=== PATIENT | female | born 1935 | race Caucasian/White ===

== ENCOUNTER → 2016-10-10 08:32 | Outpatient (CLI) | payer MEDICARE, OTHER | END | disposition home or self-care (01) | LOC: D.RAD 08:32 | DX: R13.10 Dysphagia, unspecified (principal) ==

== ENCOUNTER → 2016-11-01 08:35 | Outpatient (CLI) | payer MEDICARE, OTHER | END | disposition home or self-care (01) | LOC: D.CT 08:35 | DX: K22.2 Esophageal obstruction (principal); R13.10 Dysphagia, unspecified ==

== ENCOUNTER 2017-09-12 19:09 | Inpatient (IN) | payer MEDICARE, OTHER ==
[~2017-09-12] VITALS: Ht 167.6 cm; Wt 95.0 kg
--- NOTE | ~2017-09-12 | HEMODYNAMI ---
PATIENT:JUSTICE REAGAN MEDICAL RECORD: [id number] : 35 LOCATION:D. D.2119 [place]# [id number] ADMISSION DATE: 09/13/17 Generatedon:09/14/201716:25 Patient name: JUSTICE REAGAN Patient #: [id number] SSN: DO B: 1935 Date of study: 09/14/2017 Page: Of Hemodynamic Procedure Report Patient Data Patient Demographics Procedure consent was obtained First Name: JUSTICE Gender: Female Last Name: TEZ : 1935 Middle Initial: ANNEMARIE Age: 82 year(s) Patient #: [id number] Race: Unknown Additional ID: [id number] Contact details [address]: [address] [place] [address] State: [place] City: [place] Zip code: [address] Past Medical History Allergies Allergen Reaction Date Comments Reported Other allergy 09/14/2017 PCN, Hydrocodone, Oxycodone. Admission Admission Data Admission Date: 09/13/2017 Admission Time: 20:06 Admit Source: Other Room #: D.2119 Lab Results Lab Result Date: 09/14/2017 Lab Result Time: 4:00 Biochemistry Name Units Result Min Max BUN mg/dl 13 --(--*-)-- 7 18 Creatinine mg/dl 0.9 --(-*--)-- 0.6 1.3 CBC Name Units Result Min Max Hematocrit % 37.5 *-(----)-- 42 54 Hemoglobin g/dl 12.1 *-(----)-- 13.5 17.5 Procedure Procedure Types Cath Procedure Diagnostic Procedure LHC LHC w/Coronaries Procedure Description Procedure Date Procedure Date: 09/14/2017 Procedure Start Time: 16:13 Procedure End Time: 16:25 Procedure Staff Name Function Shiva Quevedo MD Performing Physician Barry Monroe RT Monitor Bowen Marte RN Nurse Brittani Dimas RT Scrub Procedure Data Cath Procedure Fluoroscopy Diagnostic fluoroscopy Total fluoroscopy Time: 1.1 time: 1.1 min min Diagnostic fluoroscopy Total fluoroscopy dose: 289 dose: 289 mGy mGy Contrast Material Contrast Material Type Amount (ml) Isovue 300 41 Entry Location Entry Primary Successful Side Size Upsize Upsize Entry Closure Cordova ccessful Closure Location (Fr) 1 (Fr) 2 (Fr) Remarks Device Remarks Radial Right 6 Fr Mechanical artery Short Compression Estimated blood loss: 5 ml Diagnostic catheters Device Type Used For End Catheter Placement DIAGNOSTIC Wishek 110cm 5 Procedure Fr catheter ([id number]) Procedure Complications No complications Procedure Medications Medication Administration Route Dosage Oxygen NC 2 l/min Lidocaine 2% added to field 20 Heparin Flush Bag added to field 2 bags (1000units/500ml NS) 0.9% NaCl I.V. 100 ml/hr Radial Cocktail I.A. 1 syringe (Verapomil 2mg/Nitro 400mcg/Heparin 1500units) Versed I.V. 2 mg Fentanyl I.V. 25 mcg Versed I.V. 1 mg Hemodynamics Rest HGB: 12.1 (g/dl) Heart Rate: 76 (bpm) Pressure Samples Time Site Value (mmHg) Purpose Heart Use Rate(bpm) 16:16 LV 110/-13,0 EDP 76 Gradients Valve Time Site Site Mean SEP/DFP Peak To Heart Use 1 2 (mmHg) (sec/min) Peak Rate (mmHg) (bpm) Aortic 16:16 LV AO 78 Snapshots Pre Cath Intra NCS Post Cath Vital Signs Time Heart Resp SPO2 etCO2 NIBP (mmHg) Rhythm Pain Sedation Rate (ipm) (%) (mmHg) Status Level (bpm) 16:05:10 83 19 98 15.6 No Cuff NSR 0 (11) 10(A) , No pain 16:10:07 74 17 99 22.3 147/81(126) NSR 0 (11) 10(A) , No pain 16:15:04 77 21 97 36.5 149/66(121) NSR 0 (11) 10(A) , No pain 16:19:48 74 15 96 26.1 112/66(89) NSR 0 (11) 10(A) , No pain 16:24:48 67 16 98 35.7 Measuring NSR 0 (11) 10(A) , No pain 16:25:12 67 16 96 33.5 133/70(106) NSR 0 (11) 10(A) , No pain Medications Time Medication Route Dose Verified Delivered Reason Notes Effectiveness by by 16:03:50 Oxygen NC 2 l/min Shiva Buffie used for Emy Marte RN procedure MD 16:03:58 Lidocaine 2% added 20ml Shiva Shiva for local to vial Emy Quevedo MD anesthetic field 16:04:05 Heparin Flush added 2 bags Shiva Shiva used for Bag to Emy Quevedo MD procedure (1000units/500ml field LABOY NS) 16:04:14 0.9% NaCl I.V. 100 Shiva Buffie Per ml/hr Emy Marte RN physician 16:11:44 Versed I.V. 2 mg Shiva Buffie for sedation Emy Marte RN, MD 16:11:51 Fentanyl I.V. 25 mcg Shiva Buffie for sedation Emy Marte RN, MD 16:14:33 Radial Cocktail I.A. 1 Shiva Shiva for (Verapomil syringe Emy Quevedo MD vasodilation 2mg/Nitro MD 400mcg/Heparin 1500units) 16:15:27 Versed I.V. 1 mg Shiva Buffie for sedation Emy Marte RN, MD Procedure Log Time Note 15:45:48 Bowen Marte RN sent for patient. Start room use. 15:53:27 Admit Source: Other 15:53:46 Diagnostic Cath status Elective 15:53:58 Time tracking: Call back 15:54:02 Plan of Care:Hemodynamics will remain stable., Cardiac rhythm will remain stable., Comfort level will be maintained., Respiratory function will remain adequate., Patient/ family verbilizes understanding of procedure., Procedure tolerated without complication., Recovers from procedure without complications.. 15:54:08 Patient received from Med II to CCL 1 Alert and oriented. Tansferred to table in Supine position. 15:54:09 Warm blankets applied, and january hugger turned on for patient comfort. 15:54:09 Correct patient and procedure confirmed by team. 15:54:10 Signed procedure consent form obtained from patient. 15:54:11 ECG and BP/O2 sat monitors applied to patient. 15:54:55 H&P Date Dictated: 09/13/2017 Within 30 days and on chart., H&P Addendum completed by physician on day of procedure. (MUST COMPLETE FOR ALL OUTPATIENTS). 15:54:57 Pre-procedure instructions explained to patient. 15:54:58 Pre-op teaching completed and patient verbalized understanding. 15:54:59 Family in patients room. 15:55:00 Patient NPO since Midnight. 15:55:08 Lab results completed and on chart. 16:03:50 Oxygen 2 l/min NC was administered by Bowen Marte RN; used for procedure; 16:03:58 Lidocaine 2% 20ml vial added to field was administered by Shiva Quevedo MD; for local anesthetic; 16:04:05 Heparin Flush Bag (1000units/500ml NS) 2 bags added to field was administered by Shiva Quevedo MD; used for procedure; 16:04:14 0.9% NaCl 100 ml/hr I.V. was administered by Bowen Marte RN; Per physician; 16:04:20 Vital chart was started 16:08:19 Baseline sample Acquired. 16:08:23 Rhythm: sinus rhythm 16:08:54 Patient allergic to Other allergyPCN, Hydrocodone, Oxycodone. 16:08:56 Is the patient allergic to Iodine/contrast media? No. 16:08:57 Is patient on blood thinner?Yes 16:08:59 ACC The patient was administered the following blood thiners within the last 24 hours: ACCPlavix 16:09:01 Patient diabetic? No. 16:09:03 Previous problem with sedation/anesthesia? No ? 16:09:04 Snore? No 16:09:05 Sleep apnea? No 16:09:06 Deviated septum? No 16:09:07 Opens mouth fully? Yes 16:09:10 Sticks out tongue? Yes 16:09:12 Airway obstruction? No ? 16:09:25 Dentures? Yes Top denture in tight 16:09:28 Modified Andrew's test Ulnar < 7 seconds 16:09:30 Patient pain scale 0/10 ?. 16:09:40 IV patent on arrival in left hand with 0.9% NaCl at [facility]. 16:10:15 Lab Result : Creatinine 0.9 mg/dl 16:10:15 Lab Result : BUN 13 mg/dl 16:10:15 Lab Result : Hemoglobin 12.1 g/dl 16:10:15 Lab Result : Hematocrit 37.5 % 16:10:20 Right Radial & Right Groin area was prepped with chlora-prep and draped in sterile fashion 16:10:21 Alarms reviewed by R. N. 16:10:21 Sharps counted by scrub and verified by R.N. 16:10:24 Use device set Radial Dx or PCI 16:10:25 ACIST Syringe (64916) opened to sterile field. 16:10:26 Medline Cath Pack ([id number]) opened to sterile field. 16:10:27 Bag Decanter (2002S) opened to sterile field. 16:10:28 ACIST Hand Control (35113) opened to sterile field. 16:10:29 ACIST Manifold (15077) opened to sterile field. 16:10:30 Tegaderm 4 x 4 (1626W) opened to sterile field. 16:10:35 MBrace Wrist Support ([id number]) opened to sterile field. 16:10:43 SHEATH 6Fr Prelude Radial ([id number]) opened to sterile field. 16:10:46 DIAGNOSTIC WIRE .035 260cm J wire (359371) opened to sterile field. 16:10:52 Physician arrived 16:10:52 --------ALL STOP TIME OUT------ 16:10:53 Final Timeout: patient, procedure, and site verified with staff and physician. All members of the team are in agreement. 16:10:54 Right Radial & Right Groin site verified by team. 16:10:56 Physical assessment completed. ASA score P 2 - A patient with mild systemic disease as per Shiva Quevedo MD. 16:10:58 Sedation plan: IV Moderate Sedation Medication:Versed, Fentanyl 16:11:44 Versed 2 mg I.V. was administered by Bowen Marte RN; for sedation; 16:11:51 Fentanyl 25 mcg I.V. was administered by Bowen Marte RN; for sedation; 16:12:48 TR BAND Standard ([id number]) opened to sterile field. 16:13:39 Zero performed for pressure channel P1 16:13:47 Procedure started. 16:13:47 Full Disclosure recording started 16:13:50 Local anesthetic to right radial artery with Lidocaine 2% by Shiva Quevedo MD.INITIAL ACCESS ONLY 16:13:57 A 6 Fr Short sheath was inserted into the Right Radial artery 16:14:12 A DIAGNOSTIC Wishek 110cm 5 Fr catheter ([id number]) was advanced over the wire and used for Procedure. 16:14:33 Radial Cocktail (Verapomil 2mg/Nitro 400mcg/Heparin 1500units) 1 syringe I.A. was administered by Shiva Quevedo MD; for vasodilation; 16:15:27 Versed 1 mg I.V. was administered by Bowen Marte RN; for sedation; 16:16:15 LV gram done using MOSES 16:16:22 Injector settings: Ml/sec: 12, Volume: 8, 16:16:35 EF : 60 % 16:17:10 RCA angiography performed. 16:18:00 LCA angiography performed. 16:18:20 Catheter removed. 16:20:29 Sheath removed intact; hemostasis achieved with Mechanical Compression to the Right Radial artery. 16:20:31 Procedure ended.(Physican Out) 16:21:30 Fluoroscopy time 01.10 minutes. 16:21:35 Fluoroscopy dose: 289 mGy 16:21:35 Flurop Dose total: 289 16:21:39 Contrast amount:Isovue 300 41ml. 16:21:40 Sharps counted by scrub and verified by R.N. 16:21:52 TR band inflated with 12cc of air. 16:21:53 Insertion/operative site no bleeding no hematoma. 16:22:06 Post right radial artery:stable, soft, clean and dry 16:22:07 Post Procedure Pulses reassessed and unchanged 16:22:09 Post-procedure physical assessment completed. ASA score P 2 - A patient with mild systemic disease as per Shiva Quevedo MD. 16:22:11 Post procedure rhythm: unchanged. 16:22:14 Estimated blood loss: 5 ml 16:22:15 Post procedure instruction explained to patient.Patient verbalizes understanding. 16:22:17 Patient needs reinforcement of post procedure teaching. 16:24:52 Procedure and supply charges have been captured, reviewed, submitted and are correct. 16:24:54 Procedure Complication : No complications 16:25:08 Vital chart was stopped 16:25:08 See physician's report for complete and final results. 16:25:09 Report given to PCU. 16:25:12 Patient transfered to PCU with Stretcher. 16:25:13 Procedure ended. 16:25:13 Full Disclosure recording stopped 16:25:17 End room use (Document Last) Device Usage Item Name Manufacture Quantity Catalog Number Hospital Part Current M inimal Lot# / Charge Number Stock Stock Serial# Code ACIST Syringe Acist 1 72781 [id number] 190137 644815 2 0 (51806) [employer] Medline Cath Cardinal 1 [id number] 991421 91019 768707 5 Pack Health ([id number]) Bag Decanter Microtek 1 2002S 028500 52274 719291 5 (2001S) Medical Inc. ACIST Hand Acist 1 87291 100728 908172 734604 5 Control (32045) [employer] Inc ACIST Manifold Acist 1 17846 643630 534623 207846 5 (90295) [employer] Inc Tegaderm 4 x 4 3M 1 1626W 686946 865786 545124 5 (1626W) MBrace Wrist Advanced 1 140-0250-00 402085 89538 446729 5 Support Vascular ([id number]) Dynamics SHEATH 6Fr Merit 1 [id number] 664234 581286 743981 5 Prelude Radial Medical ([id number]) DIAGNOSTIC WIRE St Smooth 1 169376 971284 707299 144069 3 0 .035 260cm J wire (690267) TR BAND Terumo 1 [id number] 105505 655201 809549 4 0 Standard ([id number]) DIAGNOSTIC Terumo 1 40-1805 572230 340481 901352 5 Wishek 110cm 5 Fr catheter (081723) Signature Audit [place] Stage Time Signature Unsigned Intra-Procedure 09/14/2017 Barry Monroe 4:25:39 PM RT(R) Signatures Monitor : Barry Monroe RT Signature : Date : Time : [facility] [address] [place] [address]
--- NOTE | ~2017-09-12 | EC ---
PATIENT:UJSTICE REAGAN DATE OF SERVICE: 09/13/17 SEX: F MEDICAL RECORD: [id number] DATE OF : 35 LOCATION:D.M2 D.211 AGE OF PATIENT: 82 ADMISSION DATE: 09/13/17 REFERRING PHYSICIAN: INTERPRETING PHYSICIAN: DENITA GUZMAN MD ECHOCARDIOGRAM REPORT ECHO CHARGES 4 ECHO COMPLETE DATE: CLINICAL DIAGNOSIS: CP ECHOCARDIOGRAPHIC MEASUREMENTS (adult normal given) AC root (d.<3.7cm) 2.7 cm LV Septum d (<1.2 cm> 1.8 cm Valve Excursion 1.7 cm LV Septum (systole) 2.2 cm Left Atria (s.<4.0cm> 3.6 cm LVPW d(<1.2cm) 1.6 cm RV (d.<2.3cm) 2.6 cm LVPW (sytole) 2.1 cm LV diastole(<5.6CM) 4.8 cm MV E-F(>70mm/sec) cm LV systole 3.0 cm LVOT Diameter 1.8 cm MV exc.(>10mm) cm Est.ejection fraction (50-75%) % DOPPLER: LVIT cm/sec A 190 cm/sec E 122 cm/sec LA cm/sec RVSP 22.0 mmHg LVOT 121 cm/sec AOP1/2T m/s Asc. Ao 177 cm/sec RVOT 81.0 cm/sec RA cm/sec PA 92.0 cm/sec AV Gradient Peak 13.0 mmHg AV Mean 6.6 mmHg AV Area 1.5 cm MV Gradient Peak 12.1 mmHg MV Mean 3.1 mmHg MV Area cm COMMENTS: Board Stacker: Delphine FALKOE Pediatric Np: 4 Dr. Guzman TAPE# PACS Pericardial Effusion N DATE OF SERVICE: 09/14/2017 PROCEDURE: Transthoracic echocardiogram. FINDINGS: 1. Left ventricle has moderate concentric left ventricular hypertrophy. Overall, ejection fraction is normal 50-55%. There are no significant wall motion abnormalities. Inflow characteristics are consistent with diastolic dysfunction. 2. The left atrium is normal size and normal function. ECHOCARDIOGRAM REPORT [id number] JUSTICE REAGAN 3. The aortic valve is mildly sclerotic, but otherwise normal. 4. The mitral valve has mitral annular calcification with mild-moderate mitral regurgitation. 5. Tricuspid valve has normal function. 6. Normal right ventricular systolic pressures. 7. The right ventricle is normal size, normal function. 8. The right atrium is normal size, normal function. CONCLUSIONS: The patient has evidence of moderate hypertensive heart disease, otherwise normal echo with moderate mitral regurgitation. TRANSINT:[id number] Voice Confirmation ID: [id number] DOCUMENT ID: [id number] DENITA GUZMAN MD at 0924 CC: [id number] DICTATION DATE: 09/15/17 1149 TRAFFIC COORDINATOR: 09/15/17 1206 DIS IN 09/14/17 [place] [place] [address]
--- NOTE | ~2017-09-12 | CN ---
PATIENT NAME:JUSTICE REAGAN MEDICAL RECORD: [id number] : 35 LOCATION:D.Latisha D.2119 ADMIT DATE: 09/13/17 ACCOUNT: [id number] CONSULTING PHYSICIAN: TRAE BURNS MD REFERRING PHYSICIAN: ALEXANDER EVANS MD DATE OF CONSULTATION: 09/13/2017 HISTORY OF PRESENT ILLNESS: An 82-year-old female with a history of peripheral neuropathy, essential tremor, hypertension, hypothyroidism, admitted with chest pain. It is probably more right upper quadrant pain by description, more or less unrelenting over the past 3-4 days, really has not felt well and has had intermittent abdominal pain since hysterectomy in this fall. Cardiac enzymes negative so far. ECG without acute change. We are asked to see her concerning her cardiovascular status. PAST MEDICAL HISTORY: Includes: 1. History of hypothyroidism, on replacement. 2. Peripheral neuropathy. 3. Essential tremor. 4. Hypertension. ALLERGIES: PENICILLIN, HYDROCODONE, OXYCODONE. MEDICATIONS: Include Inderal 60 daily, Neurontin 300 mg in a.m. and 600 at p.m., aspirin 81 every day, Lasix 20 every day, Prilosec 20 b.i.d. (stopped this on her own, just recently restarted), Synthroid 50 mcg every day. SOCIAL HISTORY: Nonsmoker, nondrinker. Easily takes care of her ADLs. REVIEW OF SYSTEMS: The patient reports easy bruising but reports no swollen glands. The patient reports no fever, no night sweats, no significant weight gain, no significant weight loss. No significant exercise tolerance. The patient reports no dry eyes, no irritation, no vision change. Patient reports no difficulty hearing and no ear pain. Patient reports no frequent nose bleeds or nose and sinus problems. Patient reports on arm pain on exertion. No shortness of breath while lying down. No history of heart murmur. Patient reports no cough, no wheezing or coughing up blood. Patient reports no abdominal pain, no vomiting. Normal appetite. No diarrhea and not vomiting blood. No nausea and no constipation. Patient reports no incontinence. No difficulty urinating. No hematuria. No increased frequency. Patient reports no muscle aches. No weakness, no arthralgias, no back pain. No swelling of the extremities. Patient reports no abnormal mole, no jaundice, no rashes. Reports no loss of consciousness. No weakness and no numbness. No seizures, dizziness, or headaches. The patient reports no depression, no sleep disturbance, feeling safe in a relationship and no alcohol abuse. Patient reports on fatigue. Reports no runny nose or sinus pressure. No itching, no hives, and no frequent sneezing. PHYSICAL EXAMINATION: GENERAL: Pleasant female in no acute distress. VITAL SIGNS: Blood pressure 170/69, pulse 74 and regular. HEENT: Normocephalic, atraumatic. NECK: No JVD or bruit. HEART: Regular. LUNGS: Clear. CONSULT REPORT [id number] REAGANJUSTICE ABDOMEN: Soft, nontender. EXTREMITIES: Pulses are well preserved, 2+ with no edema. NEUROLOGIC: Grossly intact. IMPRESSION: We will check echocardiographic study for any focal wall motion abnormality. Given protracted nature of pain and location as well as negative enzymes, I doubt coronary etiology of her chest pain. TRANSINT:[id number] Voice Confirmation ID: [id number] DOCUMENT ID: [id number] TRAE BURNS MD at 0846 CC: [id number] DICTATION DATE: 09/13/17 0849 BUMBOATER: 09/13/17 1113 DIS IN 09/14/17 [facility] [address] [place] [address]
[2017-09-12 19:48] LABS: BASOPHILS 0.5 % (0-2); EOSINOPHILS 2.7 % (0-7); HEMATOCRIT 40.2 % (36.0-48.0); IMMATURE GRANULOCYTES 0.3 % (0-5); LYMPHOCYTES 21.8 % (15-50); MCHC 32.3 g/dL (31.0-37.0); MCV 89.5 fL (80.0-100.0); MONOCYTES 11.6 % (2-11); NEUTROPHILS 63.1 % (40-80); PLATELET COUNT 179 10x3/uL (130-400); RBC 4.49 10x6/uL (4.00-5.40); RDW 12.9 % (11.5-14.5); WBC 9.8 10x3/uL (4.8-10.8)
[2017-09-12 20:06] LABS: ALKALINE PHOSPHATASE 179 U/L (46-116); ALT (SGPT) 25 U/L (10-68); BILIRUBIN - TOTAL 0.33 mg/dL (0.2-1.3); CALC OSMOLALITY 281 mosm/kg (275-300); CALCIUM 9.6 mg/dL (8.5-10.1); CARBON DIOXIDE 30.2 mmol/L (21.0-32.0); CHLORIDE - SERUM 104 mmol/L (98-107); CREATININE - SERUM 1.3 mg/dL (0.6-1.3); GLUCOSE 113 mg/dL (74-106); POTASSIUM - SERUM 4.9 mmol/L (3.5-5.1); PROTEIN - SERUM 7.8 g/dL (6.4-8.2); SODIUM 139 mmol/L (136-145); UREA NITROGEN 22 mg/dL (7-18); eGFR NON AFRICAN AMERICAN 41 mL/min (90-120)
[2017-09-12 20:17] LABS: CHOL - HDL RATIO 3.3 ratio (2.3-4.1); CHOLESTEROL, TOTAL 255 mg/dL (0-200); CKMB 1.1 U/L (0.0-3.6); CREATINE KINASE 71 UL (21-215); HDL CHOLESTEROL 77 mg/dL (32-96); LDL CHOLESTEROL 163 mg/dL (0-100); LDL-HDL RATIO 2.1 ratio (1.5-3.5); TRIGLYCERIDE 76 mg/dL (30-200)
[2017-09-12 20:20] LABS: TROPONIN-I < 0.017 ng/mL (0.000-0.060)
[2017-09-12 22:03] LABS: TROPONIN-I 0.032 ng/mL (0.000-0.060)
[2017-09-12 23:43] VITALS: BP 170/69; Ht 167.6 cm; Wt 95.0 kg
[2017-09-13] MEDS ORDERED: DUREZOL5 ML EACH EYE (01:05)
[2017-09-13] MEDS ORDERED: ACULAR 0.5 % OPH5 ML EACH EYE (01:05)
[2017-09-13] MEDS ORDERED: KENALOG 0.1 % 115 GM TOPICAL (01:06)
[2017-09-13] MEDS ORDERED: ARAVA10 MG PO (01:07)
[2017-09-13] MEDS ORDERED: LEVOTHYROXINE50 MCG PO (01:08)
[2017-09-13] MEDS ORDERED: NEURONTIN 300300 MG PO (01:44)
[2017-09-13] MEDS ORDERED: NEURONTIN600 MG PO (01:45)
[2017-09-13] MEDS ORDERED: OMEPRAZOLE20 M1 PO (01:46)
[2017-09-13] MEDS ORDERED: PROPRANOLOL HCL60 MG PO (01:46)
[2017-09-13] MEDS ORDERED: FUROSEMIDE20 MG PO (01:47)
[2017-09-13] MEDS ORDERED: K-TAB10 MEQ PO (01:47)
[2017-09-13] MEDS ORDERED: BAYER CHEWABLE81 MG PO (01:47)
[2017-09-13] MEDS ORDERED: BIOTIN5 MG PO (01:48)
[2017-09-13] MEDS ORDERED: CO Q-10200 MG PO (01:48)
[2017-09-13] MEDS ORDERED: OCUVITE TABLET1 TA1 PO (01:49)
[2017-09-13] MEDS ORDERED: DETROL2 MG PO (01:49)
[2017-09-13 05:03] LABS: CKMB 0.9 U/L (0.0-3.6); CREATINE KINASE 60 UL (21-215)
[2017-09-13 05:08] LABS: TROPONIN-I < 0.017 ng/mL (0.000-0.060)
[2017-09-13 10:19] LABS: CREATINE KINASE 52 UL (21-215)
[2017-09-13 10:23] LABS: TROPONIN-I < 0.017 ng/mL (0.000-0.060)
[2017-09-13 13:05] VITALS: BP 140/73
[2017-09-13 16:04] VITALS: BP 140/79
[2017-09-13 20:00] VITALS: BP 137/68
[2017-09-14] VITALS: BP 137/71
[2017-09-14 04:00] VITALS: BP 130/67
[2017-09-14 05:48] LABS: BASOPHILS 0.7 % (0-2); EOSINOPHILS 2.3 % (0-7); HEMATOCRIT 37.5 % (36.0-48.0); HEMOGLOBIN 12.1 g/dL (12-16); LYMPHOCYTES 32.9 % (15-50); MCH 28.3 pg (26.0-34.0); MCHC 32.3 g/dL (31.0-37.0); MCV 87.8 fL (80.0-100.0); MEAN PLATELET VOLUME 10.6 fL (7.4-10.4); MONOCYTES 14.4 % (2-11); NEUTROPHILS 49.7 % (40-80); PLATELET COUNT 172 10x3/uL (130-400); RBC 4.27 10x6/uL (4.00-5.40); RDW 12.9 % (11.5-14.5)
[2017-09-14 06:06] LABS: ALBUMIN 2.5 g/dL (3.4-5.0); ANION GAP 12.3 mmol/L (8-16); BILIRUBIN - TOTAL 0.4 mg/dL (0.2-1.3); CALCIUM 8.9 mg/dL (8.5-10.1); CARBON DIOXIDE 26.2 mmol/L (21.0-32.0); PROTEIN - SERUM 6.7 g/dL (6.4-8.2)
[2017-09-14 06:07] LABS: CREATININE - SERUM 0.9 mg/dL (0.6-1.3); POTASSIUM - SERUM 3.5 mmol/L (3.5-5.1)
[2017-09-14 10:15] VITALS: BP 146/76
[2017-09-14 12:35] VITALS: BP 134/64
== END 2017-09-14 20:55 | disposition home or self-care (01) | DRG 287 ==
LOC: D.ER 19:09 → OBSVTIME 21:14 → D.M2 21:14
PROVIDERS: Emergency Medicine; Family Medicine Adult Medicine; Internal Medicine Cardiovascular Disease
PROC: B2151ZZ Fluoroscopy of Left Heart using Low Osmolar Contrast (ICD-10-PCS; 2017-09-14)
PROC: 4A023N7 Measurement of Cardiac Sampling and Pressure, Left Heart, Percutaneous Approach (ICD-10-PCS; 2017-09-14)
PROC: B2111ZZ Fluoroscopy of Multiple Coronary Arteries using Low Osmolar Contrast (ICD-10-PCS; principal; 2017-09-14 15:45)
DX: R07.89 Other chest pain (principal); I10 Essential (primary) hypertension; E78.5 Hyperlipidemia, unspecified; I25.10 Atherosclerotic heart disease of native coronary artery without angina pectoris; E03.9 Hypothyroidism, unspecified; K21.9 Gastro-esophageal reflux disease without esophagitis; G62.9 Polyneuropathy, unspecified; L40.50 Arthropathic psoriasis, unspecified

== ENCOUNTER → 2019-12-01 13:54 | Outpatient (CLI) | payer MEDICARE, OTHER ==
[2017-09-12 23:43] VITALS: BMI 33.6
[~2019-12-01 13:54] MED LIST: ACULAR 0.5 % OPH5 ML EACH EYE; ARAVA10 MG PO; BAYER CHEWABLE81 MG PO; BIOTIN5 MG PO; CO Q-10200 MG PO; DETROL2 MG PO; DUREZOL5 ML EACH EYE; FUROSEMIDE20 MG PO; K-TAB10 MEQ PO; KENALOG 0.1 % 115 GM TOPICAL; LEVOTHYROXINE50 MCG PO; NEURONTIN 300300 MG PO; NEURONTIN600 MG PO; OCUVITE TABLET1 TA1 PO; OMEPRAZOLE20 M1 PO; PROPRANOLOL HCL60 MG PO
== END | disposition home or self-care (01) ==
LOC: D.HCCECHO 13:54
PROVIDERS: ATTEND Internal Medicine Cardiovascular Disease
DX: I34.0 Nonrheumatic mitral (valve) insufficiency (principal)